=== PATIENT | female | born 1990 | race Caucasian/White ===

== ENCOUNTER 2016-07-10 16:00 | Emergency (ER) | payer BC, OTHER ==
[2016-07-10 16:02] VITALS: BP 137/84; PULSE 98; RESP 16; TEMP 98.4; O2SAT 98
--- NOTE | 2016-07-10 16:12 | PD ---
Physical Exam Date Seen by Provider: Jul 10, 2016 Time Seen by Provider: 16:11 Narrative Pt presents c/o cough, body aches, earaches. Symptoms started Saturday. No N/V/D. VSS. Pt appears well in no acute distress. Pt moved to K pod. Data Data Last Documented VS Vital Signs Date Time Temp Pulse Resp B/P Pulse Ox O2 Delivery O2 Flow Rate FiO2 07/10/16 16:02 98.4 98 16 137/84 98 MDM Supervised Visit with ALICIA: No Scripts No Active Prescriptions or Reported Meds Mikayla Knox Jul 10, 2016 16:12
--- NOTE | 2016-07-10 16:14 | PD ---
HPI . Cough, body aches, ear ache and nasal congestion for the past several days. Chief Complaint: Cold / Flu Symptoms Time Seen by Provider: 16:14 Travel History International Travel<30 days: No Contact w/Intl Traveler<30days: No Traveled to known affect area: No History of Present Illness HPI 25-year-old female who is currently breast-feeding here with complaints of cough , body aches, earache and congestion for the past 3-4 days. Patient says all of her children are sick with similar issues and she decided to come to the emergency department for evaluation and treatment. She is in the process of trying to breast-feed, but tells me that the baby is having some difficulty and her milk production seems to be low. She is concerned because she doesn't feel well and needs something to help her get better. She is complaining of coughing that is making her body ache. She does not admit to body aches similar to that of influenza. She denies any fever or chills and has no other complaints. PFSH Past Medical History Hx Anticoagulant Therapy: No Cardiovascular Problems: No Chemotherapy: No Cerebrovascular Accident: No Diabetes: No Diminished Hearing: No Respiratory: No Immunizations Current: Yes ?: Not : 2 Para: 1 Social History Alcohol Use: No Tobacco Use: No Substance Use: No Allergies-Medications (Allergen,Severity, Reaction): Coded Allergies: Amoxicillin (Verified Allergy, Intermediate, Rash, 07/10/16) Keflex (Verified Allergy, Intermediate, Hives, 07/10/16) Penicillin (Verified Allergy, Intermediate, Hives, 07/10/16) Reported Meds & Prescriptions Reported Meds & Active Scripts Active Zithromax Z-Anoop (Azithromycin) 250 Mg Dspk 250 Mg PO DIRECTED 500 MG (2 tabs) day 1, then 1 tab days 2-5. Review of Systems General / Constitutional: No: Fever Eyes: No: Visual changes HENT: Positive: Congestion, Other (facial pain), No: Headaches Cardiovascular: No: Chest Pain or Discomfort Respiratory: Positive: Cough, No: Shortness of Breath Gastrointestinal: No: Abdominal Pain Genitourinary: No: Dysuria Musculoskeletal: No: Pain Skin: No Rash Neurologic: No: Weakness Psychiatric: No: Depression Endocrine: No: Polydipsia Hematologic/Lymphatic: No: Easy Bruising Physical Exam Narrative GENERAL: AAO x 3, no acute distress, Well-nourished, well-developed patient. SKIN: Warm and dry. No visible rashes or bruising. HEAD: Normocephalic and atraumatic. EYES: No scleral icterus. No injection or drainage. ENT: No nasal drainage noted. Mucous membranes pink. Airway patent. Boggy nasal turbinates. Postnasal drip present. Maxillary sinus tenderness. TMs with air bubbles bilaterally NECK: Supple, trachea midline. No JVD. No lymphadenopathy CARDIOVASCULAR: Regular rate and rhythm without murmurs, gallops, or rubs. RESPIRATORY: Breath sounds equal bilaterally. No accessory muscle use. No rhonchi or rales. GASTROINTESTINAL: Visual inspection is normal EXTREMITIES: No cyanosis or edema. BACK: Nontender without obvious deformity. No CVA tenderness. PSYCH: AAO x 3, normal affect. Data Data Last Documented VS Vital Signs Date Time Temp Pulse Resp B/P Pulse Ox O2 Delivery O2 Flow Rate FiO2 07/10/16 16:02 98.4 98 16 137/84 98 MDM Medical Decision Making Medical Screen Exam Complete: Yes Emergency Medical Condition: Yes Medical Record Reviewed: Yes Differential Diagnosis Sinusitis, pharyngitis, less likely bronchitis, less likely influenza, less likely pneumonia Narrative Course 25-year-old female who is currently breast-feeding here with complaints of cough , body aches, earache and congestion for the past 3-4 days. Patient says all of her children are sick with similar issues and she decided to come to the emergency department for evaluation and treatment. She is in the process of trying to breast-feed, but tells me that the baby is having some difficulty and her milk production seems to be low. She is concerned because she doesn't feel well and needs something to help her get better. She is complaining of coughing that is making her body ache. She does not admit to body aches similar to that of influenza. She denies any fever or chills and has no other complaints. Patient seen and examined. She appears to have an acute sinusitis. I do not suspect any influenza or pneumonia. She is allergic to amoxicillin and Keflex, therefore I will go ahead and use azithromycin. I've explained to her that this medication can cross into the breast milk. She is wanting something for cough, I recommend cough drops as needed. I recommend if her symptoms do not improve that she follow-up with her primary care provider [employer]. Patient verbalized understanding of instructions, questions were answered, and thanked me for their care. I advised them if their condition worsens, please return to the nearest emergency room for further care. Diagnosis Primary Impression: Acute sinusitis Qualified Code: J01.00 - Acute maxillary sinusitis, recurrence not specified Patient Instructions: General Instructions Additional Instructions: Please return to emergency department if your symptoms return or worsen. Follow up with your primary care provider. Take medications as prescribed. Try cough drops for the cough. This medication will cross over into your breast milk, but is considered safe while . If your symptoms do not improve, please see your primary care provider or OB/ [facility]. Med/Other Pt SpecificInfo: Prescription(s) given Scripts Azithromycin (Zithromax Z-Anoop)250 Mg [id number] Mg PO DIRECTED #1 DSPK Ref 0 500 MG (2 tabs) day 1, then 1 tab days 2-5. Prov:Kiran Rojas MD 07/10/16 Disposition: 01 DISCHARGE HOME Condition: Stable Dina Steiner Jul 10, 2016 16:14
[2016-07-10] MEDS ORDERED: ZITHTAB PO (16:19)
== END 2016-07-10 16:48 | disposition home or self-care (01) ==
LOC: NEPK 16:00
DX: J01.00 Acute maxillary sinusitis, unspecified (principal)
CPT/HCPCS: 99283